=== PATIENT | male | born 1955 | race Caucasian/White ===

== ENCOUNTER 2019-01-13 11:16 | Inpatient (IN) ==
[2019-01-13] MEDS ORDERED: NS 1,000 ML IV ONE ×2 (11:32→13:49)
[2019-01-13] MEDS ORDERED: TYLENOL PO ONE (11:32)
[2019-01-13] MEDS ORDERED: CARDIZEM IV ONE (11:37)
--- NOTE | 2019-01-13 11:58 | PROVIDER DOCUMENTATION ---
This chart was entered by Adri Anderson Scribe, acting as scribe for Gregory Roa CRNP. HPI-General Adult - General Chief Complaint: SEPSIS ALERT - D Stated Complaint: weakness Time Seen by Provider: 01/13/19 11:30 Source: patient Allergies/Adverse Reactions: Patient Allergies Allergy/AdvReac Type Severity Reaction Status Date / Time celecoxib [From Celebrex] Allergy ABDOMINAL Verified 11/10/13 09:25 PAIN cephalexin monohydrate * Allergy SHORTNESS Verified 11/10/13 09:25 [From Keflex] OF BREATH Penicillins Allergy Unknown Verified 11/10/13 09:25 Home Medications: Home Medication List Medication Instructions Recorded Confirmed Last Taken Type Bumetanide [Bumex] 2 mg PO BID 11/10/13 11/11/13 11/10/13 20:00 History Carvedilol [Coreg] 25 mg PO BID 11/10/13 11/11/13 11/11/13 05:00 History Digoxin [Lanoxin] 125 microgm PO DAILY 11/10/13 11/11/13 11/11/13 05:00 History Diltiazem HCl [Tiazac] 240 mg PO BID 11/10/13 11/11/13 11/11/13 05:00 History Esomeprazole [Nexium] 40 mg PO DAILY 11/10/13 11/11/13 11/10/13 08:00 History Glipizide 5 mg PO DAILY 11/10/13 11/11/13 11/10/13 08:00 History Hydralazine HCl 100 mg PO TID 11/10/13 11/11/13 11/11/13 05:00 History Hydrocodone/Acetaminophen [Lortab 1 - 2 each PO BID PRN PRN 11/10/13 11/11/13 11/10/13 08:00 History 5-325 mg Tablet] Irbesartan [Avapro] 150 mg PO DAILY 11/10/13 11/11/13 11/10/13 08:00 History Isosorbide Mononitrate E.r. [Imdur] 30 mg PO BID 11/10/13 11/11/13 11/10/13 20:00 History Metaxalone [Skelaxin] 400 - 800 mg PO TID PRN 11/10/13 11/11/13 11/10/13 20:00 History Metformin E.r. [Glucophage Xr] 1,000 mg PO BID CC 11/10/13 11/11/13 11/10/13 20:00 History Perindopril Erbumine [Aceon] 1 mg PO BID 11/10/13 11/11/13 11/10/13 20:00 History ROSUVAstatin [Crestor] 10 mg PO QHS 11/10/13 11/11/13 11/10/13 20:00 History Warfarin [Coumadin] 4 mg PO QHS 11/10/13 11/11/13 11/07/13 History - History of Present Illness -Gen Adult Nature of Presenting Problems: 63 y/o male presents to ED with fever and weakness onset 2 days ago. Pt also complains of R leg redness, warmth, and pain. Pt is alert and oriented. Location of Pain/Injury: reports: lower extremity Pain Radiation: reports: no radiation Quality of Pain: reports: aching Severity: reports: moderate Onset/Duration: reports: 2 days ago Timing: reports: still present, getting worse Context/Activities at Onset: reports: none Modifying Factors: worse with: palpation Associated Symptoms: reports: fever/chills, weakness, other (R leg redness, warmth, and pain) Similar Symptoms Previously?: No Recently seen or treated by another doctor?: No Review of Systems - Adult - REVIEW OF SYSTEMS - ADULT Constitutional: reports: fever. denies: chills Eyes: reports: no symptoms reported Ears, Nose, Mouth & Throat: reports: no symptoms reported Cardiovascular: denies: chest pain, palpitations Respiratory: denies: cough, shortness of breath Gastrointestinal: denies: abdominal pain, diarrhea, nausea, vomiting Genitourinary: reports: no symptoms reported Musculoskeletal: denies: back pain, joint pain Integumentary: reports: other (R leg redness, warmth, and pain). denies: hives Neurological: reports: other (weakness). denies: dizziness/vertigo, seizure Psychiatric: reports: no symptoms reported Endocrine: reports: no symptoms reported Hematologic/Lymphatic: reports: no symptoms reported Allergic/Immunologic: reports: no symptoms reported All Other Systems: Reviewed and Negative Past History - Adult - PAST MEDICAL HISTORY-ADULT Review of Records: reports: Old Records Reviewed, Nursing Assessment Review, Medications Reviewed Major Childhood Illnesses: reports: denies history Cardiovascular: reports: HTN Respiratory: reports: sleep apnea Genitourinary: reports: kidney stones - PRIOR SURGERIES/PROCEDURES Surgical/Procedure History: reports: none - IMMUNIZATION STATUS Childhood Immunizations: See Nurse Assessment Flu Vaccine: See Nurse Assessment - FAMILY HISTORY Family History: reviewed, not pertinent - SOCIAL HISTORY Smoking: cigarettes, greater than 1 pack/day Provider spent 3-5 mins advising pt. on dangers of tobacco.: Discussed manners to quit use, and f/u contacts for add'l counseling. Substance Use: none/never Alcohol Use Frequency: never Living Situation: family Physical Exam-General - PHYSICAL EXAM-ADULT Initial Vital Signs Reviewed: Yes (temp 100.9) - CONSTITUTIONAL General Appearance: alert, no apparent distress - EYES Eyes: PERRL/EOMI, pink conjunctivae - HEAD, EARS, NOSE, MOUTH & THROAT HENMT: normocephalic/atraumatic, moist mucous membranes, normal ENT inspection - NECK Neck: non-tender, full range of motion - RESPIRATORY Respiratory: chest non-tender, rhonchi (bilateral but mild), increased rate - CARDIOVASCULAR Cardiovascular: tachycardia, irregularly irregular - GASTROINTESTINAL (ABDOMEN) Abdominal Exam: normal bowel sounds, non tender, soft - LYMPHATIC Lymphatic: no adenopathy. negative: axilla node tender, cervical node tenderness - MUSCULOSKELETAL Back Exam: normal inspection, no CVA tenderness, no vertebral tenderness Extremity: normal range of motion, erythema (Right inner thigh), inflammation (Right inner thigh) Peripheral Pulses: radial (R): 2+, radial (L): 2+ - SKIN Integumentary: normal color, warm/dry, erythema (R medial leg), tenderness (R medial leg), warm (R medial leg), other (bilateral venous stasis ulcers; R medial leg cellulitis with associated streaking; R leg warm to touch and mildly indurated) - NEUROLOGIC Neurologic: grossly normal - PSYCHIATRIC Psych/Mental Status: normal mood/affect, normal thought content, normal thought process, oriented x 3 Progress - PLAN OF CARE/RESULTS Progress/Plan/Lab Results: Vital Signs - 8 hr 01/13/19 11:18 Temperature 100.9 F H Pulse Rate 107 H Respiratory Rate 20 Blood Pressure 131/89 O2 Sat by Pulse Oximetry 96 Laboratory Results - last 24 hr 01/13/19 11:31 POC Glucose 140 H Orders Category Date Time Status Cardiac Monitoring DIRECTED Care 01/13/19 11:31 Active IV Insertion ORDERED Care 01/13/19 11:31 Completed Notify MD of + Sepsis Screen NOW Care 01/13/19 11:31 Active Notify Physician As Ordered Care 01/13/19 11:31 Active CHEST-1 VIEW [RAD] Stat Exams 01/13/19 11:31 Ordered ABG [RESP] Routine Lab 01/13/19 11:31 Ordered BLOOD CULTURE [BLDCUL] Stat Lab 01/13/19 11:42 Ordered CBC WITH DIFF [HEME] Stat Lab 01/13/19 11:42 Ordered CK PROFILE [SP CHEM] Stat Lab 01/13/19 11:42 Ordered COMPREHENSIVE METABOLIC PANEL [CHEM] Stat Lab 01/13/19 11:42 Ordered LACTATE, PLASMA [CHEM] Q3H Lab 01/13/19 11:45 Uncollected LACTATE, PLASMA [CHEM] Q3H Lab 01/13/19 14:45 Uncollected LACTATE, PLASMA [CHEM] Q3H Lab 01/13/19 17:45 Uncollected MAGNESIUM [CHEM] Stat Lab 01/13/19 11:42 Ordered PROTIME WITH INR [COAG] Stat Lab 01/13/19 11:42 Ordered PTT [COAG] Stat Lab 01/13/19 11:42 Ordered TROPONIN T Stat Lab 01/13/19 11:42 Ordered URINALYSIS W/POSS RFLX CULT [URINALYSIS] Stat Lab 01/13/19 11:31 Uncollected 0.9% Sodium Chloride Inj [Ns] 1,000 ml Med 01/13/19 11:32 Active IV 999 mls/hr Acetaminophen [Tylenol] Med 01/13/19 11:32 Discontinued 1,000 mg PO NOW ONE Diltiazem [Cardizem] Med 01/13/19 11:37 Discontinued 10 mg IV NOW ONE Oxygen Device Stat Oth 01/13/19 11:31 Active Laboratory Tests 01/13/19 01/13/19 01/13/19 04:11 04:11 04:11 WBC RBC Hgb Hct MCV MCH MCHC RDW Std Deviation Plt Count MPV Immature Gran % (Auto) Neut % (Auto) Lymph % (Auto) [place] % (Auto) Eos % (Auto) Baso % (Auto) Immature Gran # (Auto) Neut # (Auto) Lymph # (Auto) [place] # (Auto) Eos # (Auto) Baso # (Auto) PT 24.4 H INR 2.13 PTT (Actin FS) 41.3 Specimen Type Sample Site pH pCO2 pO2 HCO3 Base Excess Oxyhemoglobin ABG O2 Sat (Calculated) ABG O2 Saturation ABG Carboxyhemoglobin ABG Methemoglobin [place] Test A-a O2 Difference Total Hemoglobin Lactate FiO2 % Sodium 136 Potassium 3.8 Chloride 97 L Carbon Dioxide 24 L Anion Gap 15 BUN 18 Creatinine 1.1 Estimated GFR/1.73 m2 > 60 BUN/Creatinine Ratio 16 Glucose 141 H POC Glucose Calculated Osmolality 276 Calcium 8.6 L Magnesium 1.4 L Total Bilirubin 1.07 H AST 38 H ALT 29 Alkaline Phosphatase 44 Creatine Kinase 376 H Troponin T < 0.010 Total Protein 5.7 L Albumin 3.4 L Globulin 2.3 Albumin/Globulin Ratio 1.5 Plasma Lactate 01/13/19 01/13/19 01/13/19 11:31 11:34 11:34 WBC 16.64 H RBC 4.38 L Hgb 13.7 L Hct 40.0 L MCV 91.3 MCH 31.3 H MCHC 34.3 RDW Std Deviation 15.2 H Plt Count 180 MPV 10.1 Immature Gran % (Auto) 0.9 H Neut % (Auto) 89.0 H Lymph % (Auto) 4.4 L [place] % (Auto) 5.5 Eos % (Auto) 0.0 Baso % (Auto) 0.2 Immature Gran # (Auto) 0.15 H Neut # (Auto) 14.80 H Lymph # (Auto) 0.74 L [place] # (Auto) 0.92 H Eos # (Auto) 0.00 Baso # (Auto) 0.03 PT INR PTT (Actin FS) Specimen Type Sample Site pH pCO2 pO2 HCO3 Base Excess Oxyhemoglobin ABG O2 Sat (Calculated) ABG O2 Saturation ABG Carboxyhemoglobin ABG Methemoglobin [place] Test A-a O2 Difference Total Hemoglobin Lactate FiO2 % Sodium Potassium Chloride Carbon Dioxide Anion Gap BUN Creatinine Estimated GFR/1.73 m2 BUN/Creatinine Ratio Glucose POC Glucose 140 H Calculated Osmolality Calcium Magnesium Total Bilirubin AST ALT Alkaline Phosphatase Creatine Kinase Troponin T Total Protein Albumin Globulin Albumin/Globulin Ratio Plasma Lactate 4.5 H* 01/13/19 12:05 WBC RBC Hgb Hct MCV MCH MCHC RDW Std Deviation Plt Count MPV Immature Gran % (Auto) Neut % (Auto) Lymph % (Auto) [place] % (Auto) Eos % (Auto) Baso % (Auto) Immature Gran # (Auto) Neut # (Auto) Lymph # (Auto) [place] # (Auto) Eos # (Auto) Baso # (Auto) PT INR PTT (Actin FS) Specimen Type ARTERIAL Sample Site R RADIAL pH 7.51 H pCO2 26 L pO2 70 HCO3 24.1 Base Excess -0.9 Oxyhemoglobin 92.3 L ABG O2 Sat (Calculated) 17.3 ABG O2 Saturation 94.8 L ABG Carboxyhemoglobin 2.10 ABG Methemoglobin 0.4 [place] Test YES A-a O2 Difference 47.0 Total Hemoglobin 13.3 Lactate 3.50 H FiO2 % 21.0 Sodium Potassium Chloride Carbon Dioxide Anion Gap BUN Creatinine Estimated GFR/1.73 m2 BUN/Creatinine Ratio Glucose POC Glucose Calculated Osmolality Calcium Magnesium Total Bilirubin AST ALT Alkaline Phosphatase Creatine Kinase Troponin T Total Protein Albumin Globulin Albumin/Globulin Ratio Plasma Lactate Discussed results and plan of care with patient. Patient agrees with plan and verbalizes understanding. Result Diagrams: 01/13/19 11:34 01/13/19 04:11 - EKG 1 Time of EKG reading by physician:: 11:37 EKG Read and Signed by:: Randy Ponce EKG Interpretation (*Must complete 3 of following elements*): Abnormal Rate: 105 Rhythm: A fib with RVR [place]: left QRS: other (septal infarct) NH Interval: normal ST Wave: normal - XRAY 1 XRAY Study: Chest Impression: See EMR Report XRAY Interpretation: pneumonia ([place]) - CONSULTS/PCP/HOSPITALIST Notification #1 *Consult/PCP/Hospitalist*: Elicia and Dr. Morales Time Discussed: 12:43 Reason/Comments: Admission Consult Disposition: Will see in ED, Admit Departure - Departure Date of Disposition Decision: 01/13/19 Time of Disposition Decision: 12:21 DIAGNOSIS: Hyperglycemia, Hypomagnesemia, Liver enzyme elevation, Tobacco use disorder Cellulitis Qualifiers: Site of cellulitis: extremity Site of cellulitis of extremity: lower extremity Laterality: left Qualified Code(s): L03.116 - Cellulitis of left lower limb Anemia Qualifiers: Anemia type: unspecified type Qualified Code(s): D64.9 - Anemia, unspecified Pneumonia Qualifiers: Pneumonia type: due to unspecified organism Laterality: right Lung location: middle lobe of lung Qualified Code(s): J18.1 - Lobar pneumonia, unspecified organism Disposition: ADMITTED INPATIENT 09 Certified Medical Emergency: Emergent Condition: Stable Referrals and Follow-Ups: Frank Rosenberg MD [Primary Care Provider] - Discharge Education: Steps to Quit Smoking, [id number] - Critical Care Note This patient required my direct & personal management of CC.: Yes Total Time (mins): 45 Critical Care Statement: This patient required my direct personal management to treat or rule out processes, the absence of which, could potentiallly result in sudden, clinically significant life or limb threatening deterioration. Attestation - Physician/ KATHARINA Attestation Patient care was provided by Advanced Practice Provider:: Yes Advanced Practice Provider:: Gregory Roa Advanced Practice Provider documentation review:: The Mid-level provider documentation, treatment plan and medical decision making was reviewed by the physician who agrees with all treatment and medical decision making by the MLP. The physician spent face to face time with patient:: No Advanced Practice Provider documentation review:: Supervising physician onsite and consulted in the evaluation and care of this patient. The physician did not have a face to face encounter with the patient. This chart was documented by the indicated scribe, (Adri Anderson Scribe) and accurately reflects the services I performed and decisions made by me, Gregory Roa CRNP, as attested by the provider's signature.
[2019-01-13 12:13] LABS: INR 2.13; PROTIME 24.4 Seconds (11.0-16.0)
[2019-01-13 12:13] LABS: ALLEN TEST YES; BE -0.9 mmoll (-3.0-3.0); BLOOD TYPE ARTERIAL; HCO3-(ACT) 24.1 mmoll (20.0-26.0); METHB 0.4 % (0.0-1.5); O2(CT) 17.3 mL/dL (15.0-23.0); O2HB 92.3 % (95.0-99.0); PCO2(98.6) 26 mmHg (35-45); PO2(98.6) 70 mmHg (60-100); SAMPLE BLOOD; SAO2 94.8 % (95.0-100.0); THB 13.3 g/dL (11.5-17.4); pH(98.6) 7.51 (7.35-7.45)
[2019-01-13 12:13] LABS: BASO# 0.03 X1000 (0.0-0.2); BASO% 0.2 % (0.0-0.8); HEMOGLOBIN 13.7 g/dL (14.0-18.0); IMM GRAN# 0.15 X1000 (0.0-0.04); IMM GRAN% 0.9 % (0.0-0.5); LYMPH# 0.74 X1000 (1.2-3.4); LYMPH% 4.4 % (20.5-51.1); MCH 31.3 PG (27-31); MCHC 34.3 g/dL (33-37); MCV 91.3 FL (81-99); MONO# 0.92 X1000 (0.11-0.59); MONO% 5.5 % (1.7-9.3); MPV 10.1 FL (7.4-10.4); PLT 180 X1000 (130-400); RBC 4.38 XMIL (4.7-6.1); RDW 15.2 % (11.5-14.5); WBC 16.64 X1000 (4.8-10.8)
[2019-01-13 12:14] LABS: PTT 41.3 Seconds (22.3-41.8)
[2019-01-13 12:19] LABS: AGAP 15; ALB/GLOB RATIO 1.5; ALBUMIN 3.4 g/dL (3.5-5.0); ALKALINE PHOSPHATASE 44 U/L (32-122); BUN 18 mg/dL (8-22); CALCIUM 8.6 mg/dL (8.8-10.2); CHLORIDE 97 mmol/L (98-107); COSMO 276; CREATININE 1.1 mg/dL (0.7-1.2); ESTIMATED GFR > 60; GLUCOSE 141 mg/dL (70-104); GOT 38 U/L (10-34); GPT 29 U/L (10-44); MAGNESIUM 1.4 mg/dL (1.5-2.7); POTASSIUM 3.8 mmol/L (3.5-5.1); SODIUM 136 mmol/L (136-145); TCO2 24 mmol/L (25-35); TOTAL BILIRUBIN 1.07 mg/dL (0.20-1.00); TOTAL PROTEIN 5.7 g/dL (6.3-8.3)
[2019-01-13] MEDS ORDERED: VANCOMYCIN 1 GM/NS 1 GM/250 ML IVPB IV ONE (12:23)
[2019-01-13 12:24] LABS: CK PROFILE 376 U/L (24-204)
[2019-01-13 12:50] LABS: CK INDEX 1.1 (0.0-2.5); CK-MB 4.09 ng/mL (0.0-5.0)
--- NOTE | 2019-01-13 13:05 | Diag Imaging Result Doc PS360 ---
EXAM: CHEST-1 VIEW 01/13/2019 HISTORY: fever TECHNIQUE: AP portable upright at 1145 COMMENT: There is cardiomegaly. There is a granuloma in the left costophrenic angle. There are no previous studies. IMPRESSION: Cardiomegaly. Electronically signed by Eber Ivy 01/13/2019 1:03 PM
[2019-01-13 13:10] LABS: URINE SOURCE CATH
[2019-01-13 13:24] LABS: BILIRUBIN URINE NEGATIVE (NEGATIVE); BLOOD URINE MODERATE (NEGATIVE); COLOR YELLOW; GLUCOSE URINE 150 mg/dL (NEGATIVE); KETONE URINE NEGATIVE (NEGATIVE); LEUKOCYTES URINE NEGATIVE (NEGATIVE); NITRITE URINE NEGATIVE (NEGATIVE); PH URINE 6.5; PROTEIN URINE 600 mg/dL (NEGATIVE); SP GRAVITY URINE 1.024; TURBIDITY URINE HAZY (CLEAR); UROBILINOGEN URINE 4 mg/dL (NORMAL)
[2019-01-13 13:25] LABS: UR EPITHELIAL CELLS >10 /HPF (<10); URINE BACTERIA NEGATIVE /HPF; URINE RBC TNTC /HPF (<10); URINE WBC <10 /HPF (<10)
[2019-01-13] MEDS ORDERED: MAGNESIUM SULFATE 2 GM/S.W.I. 2 GM/50 ML IVPB IV ONE (13:33)
[2019-01-13] MEDS ORDERED: ZOFRAN IV PRN (13:40)
--- NOTE | 2019-01-13 13:52 | EKG Report ---
Test Performed on : 01/13/2019 11:33:09 AM Test Reason : ED. NO EKG ORDER FOR MUSE Blood Pressure : / mmHG Vent. Rate : 105 BPM Atrial Rate : 090 BPM P-R Int : 000 ms QRS Dur : 092 ms QT Int : 336 ms P-R-T Axes : 000 -33 053 degrees QTc Int : 444 ms Atrial fibrillation. with rapid ventricular response. Left axis deviation Septal infarct (cited on or before 05-JAN-2010) Abnormal ECG When compared with ECG of 05-JAN-2010 10:13, Vent. rate has increased BY 39 BPM QRS axis shifted left Questionable change in initial forces of Anteroseptal leads Nonspecific T wave abnormality no longer evident in Inferior leads T wave inversion more evident in Lateral leads Unconfirmed Result
[2019-01-13 15:49] LABS: INR 2.21
[2019-01-13] MEDS: AZACTAM 2 GM in NS 100 ML IV SCH ×2 (15:51→21:57)
[2019-01-13] MEDS: NS 1,000 ML IV SCH (15:52)
[2019-01-13] MEDS ORDERED: LANOXIN PO ONE ×2 (16:31→20:45)
--- NOTE | 2019-01-13 18:43 | HISTORY AND PHYSICAL ---
CHIEF COMPLAINT: Right lower extremity redness, warmth and pain. HISTORY OF PRESENT ILLNESS: This is a 63-year-old gentleman who presents to the emergency room complaining of generalized weakness with fevers and chills as well as redness to his right leg. He states that the leg has been red for about a week, but that over the last 2-3 days it has become warm and tender to palpation as well as with movement. He describes the pain as an aching- type pain. He is noted to have erythema as well as warmth to his right inner thigh. He was noted to have a white count of 16. He did have a temperature of 100.9 degrees on arrival to the ER. He was given IV hydration as well as IV fluids while in the emergency room. He did have a heart rate of 102 to 115 in the emergency room, with EKG revealing atrial fibrillation with RVR at a rate of 105. He carries a history of chronic atrial fibrillation. He is on medication. PAST MEDICAL HISTORY: 1. Chronic atrial fibrillation. 2. Hypertension. 3. Diabetes mellitus. 4. Sleep apnea. SOCIAL HISTORY: He smokes about a pack a day. He denies alcohol or illicit drug use. ALLERGIES: Keflex, which causes shortness of breath; penicillin, shortness of breath; Celebrex, abdominal pain. HOME MEDICATIONS: A list will be obtained by the nursing staff, and once verified we will review and restart as appropriate. REVIEW OF SYSTEMS: Discussed with the patient, with pertinent positives stated in the HPI. He denies any syncope or dizziness, any chest pain or palpitations, cough, shortness of breath, fever, chills, any night sweats, recent weight loss or weight gain, any nausea, vomiting, diarrhea, constipation, black or bloody vomitus or stools, any hematuria, dysuria, frequency or urgency. PHYSICAL EXAMINATION: GENERAL: This is a 63-year-old gentleman who is sitting up on the bedside in no distress. VITAL SIGNS: Blood pressure is 140/64 with a heart rate ranging from 101 to 106, respirations are 20, temperature is 99.2 degrees oral with O2 saturations 95% to 98%. EYES: Pupils equal, round and react to light. EOMs are intact. Sclerae anicteric. HEENT: Head is normocephalic, atraumatic. Mucous membranes are moist. NECK: Supple. Trachea midline. CARDIOVASCULAR: Irregularly irregular rate and rhythm. He is tachycardic. S1, S2 appreciated. He has no murmur. Calves are nontender bilateral, with peripheral pulses palpable. PULMONARY: Breath sounds with some rhonchi scattered throughout. Chest rises and falls symmetric with respiration. GASTROINTESTINAL: Abdomen is soft, nontender, nondistended with bowel sounds in all 4 quadrants. GENITOURINARY: He has no CVA nor suprapubic tenderness. SKIN: Warm and dry. He does have an area to his right inner thigh that is red, warm. It tender to palpation. He does have signs of bilateral venous stasis to bilateral lower extremities. He does have some induration to this right thigh. LABORATORY DATA: WBC is 16.6, with hemoglobin 13.7, hematocrit 40 and platelets 180,000. INR is 2.21. Sodium has 136, potassium 3.8, BUN 18, creatinine 1 with glucose of 140. Magnesium is 1.4. Lactate is 4.5. Urinalysis was a catheterized specimen, reveals moderate blood with less than 10 microscopic white blood cells, mug-[id number]-count red blood cells and greater than 10 epithelial cells. This could very well be consistent with contamination. Microbiology blood cultures x2 are pending. Urine culture is pending. ASSESSMENT: 1. Cellulitis, right lower extremity. 2. Fever. 3. Hyperglycemia. 4. Hypomagnesemia. 5. Elevated liver function tests. 6. Sepsis secondary to cellulitis. 7. Leukocytosis. 8. Chronic anticoagulation secondary to atrial fibrillation. 9. Atrial fibrillation with rapid ventricular response. PLAN: The patient will be admitted to the hospital. He will be placed on telemetry. We will identify his home medications and continue these as appropriate. consult Wound Care. order for the gatch at the foot of his bed to be elevated at all times. continue vancomycin, add aztreonam for antibiotic coverage. Any further antibiotics will be culture-driven. pattern blood glucose with sliding scale insulin. Replete electrolytes and trend labs. DVT prophylaxis w, SCDs gentle hydration, repeat a CBC, PT, INR, BMP and magnesium in the morning. Plan discussed with Dr Magdaleno. Further treatments pending hospital course. Dictated by URSZULA Martinez for Rowan Magdaleno MD cc: Cathy URSZULA Bingham MD [facility]
[2019-01-13] MEDS: TYLENOL PO PRN (20:43)
[2019-01-13] MEDS: COREG PO SCH (21:56)
[2019-01-13] MEDS: HUMULIN R SUBQ SCH (21:56)
[2019-01-13] MEDS: CARDIZEM CD PO SCH (21:56)
[2019-01-14] MEDS: NS 1,000 ML IV SCH (05:05)
[2019-01-14] MEDS: HUMULIN R SUBQ SCH ×4 (06:40→21:44)
[2019-01-14] MEDS: PRILOSEC PO SCH (06:45)
[2019-01-14] MEDS: AZACTAM 2 GM in NS 100 ML IV SCH ×3 (06:45→21:37)
--- NOTE | 2019-01-14 07:31 | EKG Report ---
Test Performed on : 01/14/2019 07:01:54 AM Test Reason : afib Blood Pressure : / mmHG Vent. Rate : 088 BPM Atrial Rate : 127 BPM P-R Int : 000 ms QRS Dur : 088 ms QT Int : 350 ms P-R-T Axes : 000 -11 091 degrees QTc Int : 423 ms Atrial fibrillation. with premature ventricular or aberrantly conducted complexes. Anteroseptal infarct (cited on or before 05-JAN-2010) Abnormal ECG When compared with ECG of 13-JAN-2019 11:33, (Unconfirmed) No significant change was found Confirmed by Ky Sow MD ([id number]) on 01/17/2019 9:31:12 PM
[2019-01-14 08:29] LABS: INR 1.73; PROTIME 20.6 Seconds (11.0-16.0)
[2019-01-14 08:30] LABS: BASO% 0.3 % (0.0-0.8); EOS% 0.2 % (0.0-10.0); HEMATOCRIT 38.9 % (42.0-52.0); HEMOGLOBIN 13.2 g/dL (14.0-18.0); IMM GRAN% 0.3 % (0.0-0.5); LYMPH% 5.7 % (20.5-51.1); MCH 31.2 PG (27-31); MCHC 33.9 g/dL (33-37); MONO% 7.3 % (1.7-9.3); MPV 10.1 FL (7.4-10.4); NEUT# 9.62 X1000 (1.4-6.5); NEUT% 86.2 % (42.2-75.2); PLT 136 X1000 (130-400); RBC 4.23 XMIL (4.7-6.1); RDW 15.1 % (11.5-14.5); WBC 11.15 X1000 (4.8-10.8)
[2019-01-14 08:31] LABS: BASO# 0.03 X1000 (0.0-0.2); EOS# 0.02 X1000 (0.0-0.7); IMM GRAN# 0.03 X1000 (0.0-0.04); LYMPH# 0.64 X1000 (1.2-3.4); MONO# 0.81 X1000 (0.11-0.59)
[2019-01-14] MEDS: LANOXIN PO SCH (08:36)
[2019-01-14] MEDS: GLUCOTROL XL PO SCH (08:37)
[2019-01-14] MEDS: COZAAR PO SCH (08:37)
[2019-01-14] MEDS: BUMEX PO SCH ×2 (08:38→21:37)
[2019-01-14] MEDS: COREG PO SCH ×2 (08:38→21:38)
[2019-01-14] MEDS: ZANAFLEX PO SCH ×2 (08:38→21:38)
[2019-01-14] MEDS: IMDUR PO SCH ×2 (08:39→21:38)
[2019-01-14] MEDS: CARDIZEM CD PO SCH ×2 (08:39→21:38)
[2019-01-14] MEDS: JANUVIA PO SCH (08:39)
[2019-01-14] MEDS: SINGULAIR PO SCH (08:39)
[2019-01-14 08:41] LABS: AGAP 12; BUN 19 mg/dL (8-22); CALCIUM 8.1 mg/dL (8.8-10.2); CHLORIDE 102 mmol/L (98-107); COSMO 271; CREATININE 0.9 mg/dL (0.7-1.2); ESTIMATED GFR > 60; GLUCOSE 79 mg/dL (70-104); POTASSIUM 3.3 mmol/L (3.5-5.1); SODIUM 135 mmol/L (136-145); TCO2 21 mmol/L (25-35)
[2019-01-14] MEDS ORDERED: MAGNESIUM SULFATE 2 GM/S.W.I. 2 GM/50 ML IVPB IV ONE (08:50)
[2019-01-14] MEDS ORDERED: KLOR-CON PO ONE (08:50)
[2019-01-14] MEDS ORDERED: VANCOMYCIN IV PER PHARMACY MISC SCH (16:00)
--- NOTE | 2019-01-14 16:59 | PROGRESS NOTE ---
DATE: 01/14/2019 SUBJECTIVE: The patient is resting comfortably in bed. He still has erythema mainly in the right upper thigh. OBJECTIVE: Vital Signs: Temperature 98.6 degrees, blood pressure 131/80, heart rate 92, respirations 18, O2 saturations 100% on 3 L nasal cannula. General: This is a morbidly obese, chronically ill-appearing male, lying in bed in no acute distress. Heart: S1, S2 normal. Regular rate and rhythm. Lungs: Clear to auscultation bilaterally. Abdomen: Positive bowel sounds. Soft, obese, nontender, nondistended. Extremities: The patient has erythema involving the right upper thigh. There are chronic venous stasis changes in the lower extremities plus lymphedema. Neurologic: The patient is alert and oriented x4. LABS: White blood cell count 11, hemoglobin 13, hematocrit 38, platelets 136. INR 1.7. Sodium 135, potassium 3.3, chloride 102, CO2 21, BUN 19, creatinine 0.9, glucose 177, magnesium 1.7, calcium 8.1. ASSESSMENT AND PLAN: 1. Right lower extremity cellulitis with chronic venous stasis. We will continue with broad- spectrum antibiotics. 2. Bacteremia. On bottle of the blood cultures is growing gram positive cocci. Will start Vanco and await the final culture results. 3. Diabetes mellitus type 2. Continue on Januvia, Glucotrol and sliding scale insulin. 4. Atrial fibrillation. The patient is rate controlled. Continue on Coreg, Cardizem CD, digoxin and warfarin. Will monitor the INR. 5. Hypertension, controlled. Continue on the current antihypertensive regimen. 6. Leukocytosis. Improved. 7. Morbid obesity. The patient has been counseled about weight loss and proper diet. 8. Hypokalemia. Will replace the patient's potassium. 9. DVT prophylaxis. The patient is on warfarin. cc: Rowan Magdaleno MD [facility]
[2019-01-14] MEDS ORDERED: VANCOMYCIN 2,200 MG in NS 500 ML IV ONE (17:00)
[2019-01-14] MEDS ORDERED: NS NEB INH SCH (19:00)
--- NOTE | 2019-01-14 20:12 | Diag Imaging Result Doc PS360 ---
EXAM: CHEST-PORTABLE - 01/14/2019 HISTORY: dyspnea TECHNIQUE: Portable chest COMPARISON: 01/13/2019 FINDINGS: There is stable cardiomegaly. There has been development of mild pulmonary edema. There is no pleural effusion or pneumothorax identified. IMPRESSION: Development of mild pulmonary edema. Electronically signed by Len Anton 01/14/2019 8:09 PM
--- NOTE | 2019-01-14 21:17 | EKG Report ---
Test Performed on : 01/14/2019 8:47:31 PM Test Reason : afib Blood Pressure : / mmHG Vent. Rate : 120 BPM Atrial Rate : 120 BPM P-R Int : 000 ms QRS Dur : 084 ms QT Int : 266 ms P-R-T Axes : 000 009 132 degrees QTc Int : 375 ms Atrial fibrillation. with rapid ventricular response. Anteroseptal infarct (cited on or before 05-JAN-2010) T wave abnormality, consider lateral ischemia Abnormal ECG When compared with ECG of 14-JAN-2019 07:01, (Unconfirmed) No significant change was found Confirmed by Juanjose OQUENDO MJeff Justin ([id number]) on 01/17/2019 9:32:25 PM
[2019-01-14 21:21] LABS: CK INDEX 1.3 (0.0-2.5); CK-MB 6.39 ng/mL (0.0-5.0)
[2019-01-14] MEDS: CRESTOR PO SCH (21:37)
[2019-01-14] MEDS: COUMADIN PO SCH (21:38)
[2019-01-14] MEDS: XOPENEX NEB INH SCH (23:59)
[2019-01-15] MEDS: XOPENEX NEB INH SCH ×5 (04:20→22:05)
[2019-01-15] MEDS: PRILOSEC PO SCH (06:25)
[2019-01-15] MEDS: HUMULIN R SUBQ SCH ×2 (06:26→12:25)
[2019-01-15] MEDS: AZACTAM 2 GM in NS 100 ML IV SCH ×3 (06:26→21:06)
[2019-01-15 08:11] LABS: BASO# 0.02 X1000 (0.0-0.2); BASO% 0.2 % (0.0-0.8); EOS# 0.02 X1000 (0.0-0.7); EOS% 0.2 % (0.0-10.0); HEMATOCRIT 35.8 % (42.0-52.0); IMM GRAN# 0.02 X1000 (0.0-0.04); IMM GRAN% 0.2 % (0.0-0.5); LYMPH# 1.01 X1000 (1.2-3.4); LYMPH% 11.4 % (20.5-51.1); MCH 30.4 PG (27-31); MCHC 33.5 g/dL (33-37); MCV 90.6 FL (81-99); MONO# 0.84 X1000 (0.11-0.59); MONO% 9.5 % (1.7-9.3); MPV 10.5 FL (7.4-10.4); NEUT# 6.94 X1000 (1.4-6.5); NEUT% 78.5 % (42.2-75.2); PLT 145 X1000 (130-400); RBC 3.95 XMIL (4.7-6.1); RDW 14.5 % (11.5-14.5); WBC 8.85 X1000 (4.8-10.8)
[2019-01-15 08:14] LABS: INR 1.66; PROTIME 19.9 Seconds (11.0-16.0)
[2019-01-15 08:37] LABS: MAGNESIUM 1.7 mg/dL (1.5-2.7); PHOSPHORUS 2.5 mg/dL (2.7-4.5)
[2019-01-15 08:42] LABS: AGAP 13; BUN 21 mg/dL (8-22); CALCIUM 8.2 mg/dL (8.8-10.2); CHLORIDE 100 mmol/L (98-107); COSMO 276; ESTIMATED GFR > 60; GLUCOSE 93 mg/dL (70-104); POTASSIUM 3.1 mmol/L (3.5-5.1); SODIUM 137 mmol/L (136-145); TCO2 24 mmol/L (25-35)
[2019-01-15] MEDS: GLUCOTROL XL PO SCH (09:27)
[2019-01-15] MEDS: COZAAR PO SCH (09:27)
[2019-01-15] MEDS: JANUVIA PO SCH (09:27)
[2019-01-15] MEDS: BUMEX PO SCH ×2 (09:27→20:57)
[2019-01-15] MEDS: COREG PO SCH ×2 (09:27→20:57)
[2019-01-15] MEDS: SINGULAIR PO SCH (09:28)
[2019-01-15] MEDS: CARDIZEM CD PO SCH ×2 (09:28→20:57)
[2019-01-15] MEDS: ZANAFLEX PO SCH ×2 (09:28→20:57)
[2019-01-15] MEDS: IMDUR PO SCH ×2 (09:28→20:57)
[2019-01-15] MEDS: LANOXIN PO SCH (09:28)
[2019-01-15] MEDS ORDERED: KLOR-CON PO ONE (13:26)
--- NOTE | 2019-01-15 14:17 | PROGRESS NOTE ---
DATE: 01/15/2019 SUBJECTIVE: The patient reports that right thigh is less swollen and painful. OBJECTIVE: Vital Signs: Temperature 98.5 degrees, heart rate 82, respiratory rate 19, blood pressure 151/76, O2 saturation 100% on 4 L nasal cannula. General examination: This is a chronically ill-appearing, 63-year-old male, lying in bed in no acute distress. Cardiovascular exam: S1, S2 heard. No murmurs, gallops, or rubs. Regular rate and rhythm. Respiratory exam: Clear bilaterally to auscultation. No work of breathing or using accessory muscles. Abdomen: Soft. Obese. A little distended, but nontender to palpation. Bowel sounds present. No organomegaly. Extremity: The patient has erythema involving the right upper thigh. There is chronic venous stasis changes in both lower extremities. Lymphedema ichthyosis. Neurological exam: Patient is alert and oriented x3. Moves 4 extremities. LABORATORY DATA: White cell count 8.85, hemoglobin 12.0, hematocrit 35.8, platelets 145. INR is 1.66 with BMP that reveals potassium 3.1, glucose 121 and hemoglobin A1c 7.0. Phosphorus 2.5. ASSESSMENT AND PLAN: 1. Right lower extremity cellulitis with chronic venous stasis. I think this cellulitis will take definitely some time to resolve. At this point, patient is on vancomycin that was started for possible gram-positive cocci, but there seems to be contaminant. The patient is also on Azactam for gram-negative coverage. Because I am not quite sure for how long will need antibiotics, definitely will need to have a followup as an outpatient. I prefer to get Infectious Disease consultation and see what they think. 2. Diabetes mellitus type 2. We will continue here with sliding scale insulin low doses, Accu- Chek before meals and also at bedtime. 3. Atrial fibrillation on anticoagulation. Patient is on Coreg, Cardizem CD, digoxin, warfarin. INR is 1.66. The patient is on warfarin 4 mg p.o. at bedtime. We will continue with the same management. 4. Hypertension. Blood pressure is a little bit elevated 151/76. Has been very high at night. We will continue to monitor this patient closely. 5. Leukocytosis, resolved, secondary to right extremity cellulitis. 6. Morbid obesity. Patient has been counseled to have weight loss and proper diet. 7. Disposition: As we mentioned before, we are going to consult Infectious Disease to see for how long we are going to need antibiotics. While this patient is here in the hospital, we will consult to physical therapy and will continue to monitor. cc: Yung Chadwick MD
[2019-01-15] MEDS: HUMALOG SUBQ SCH ×2 (17:16→20:56)
[2019-01-15] MEDS: NEUTRA-PHOS PO SCH ×2 (17:38→20:57)
[2019-01-15] MEDS: VANCOMYCIN 1,800 MG in NS 250 ML IV SCH (17:38)
--- NOTE | 2019-01-15 20:43 | INFECTIOUS DISEASE CONSULT REP ---
DATE: 01/15/2019 CONCLUSION: The patient has swollen erythematous legs due to chronic edema with secondary cellulitis developing in both legs. The patient has an allergy to Keflex manifested by having difficulty breathing. The patient has 1 of 2 blood cultures growing a coagulase-negative Staph. This is a contaminant and it does not require antibiotic treatment. RECOMMENDATIONS: I agree with treating the patient with Aztreonam and vancomycin. I asked the patient to elevate his legs, but he told me he will not do it because it makes him short of breath. Also, as mentioned above, the patient has 1 out of 2 blood cultures growing coagulase- negative Staph. This is a contaminant and does not require antibiotic treatment. DISCUSSION: The patient tells me that for at least 5 years, he has had red, swollen legs that are getting progressively worse. The red discoloration is becoming darker and patient states at times the legs actually look black in color. The patient also, in the past 5 days, has had increasing dyspnea. For the past 2 years, he has had urinary incontinence. LABORATORY DATA: The patient's CBC shows a white count that started out as 16,640, now it is 8850, hemoglobin is 12, and platelet count is 145,000. Creatinine is 1, GFR is greater than 60. Blood cultures 1 out of 2 is growing coagulase-negative Staph. The patient's urine culture is negative. Chest x-ray shows cardiomegaly and pulmonary edema. REVIEW OF SYSTEMS: Eyes/ears: He denies having trouble seeing or hearing. Neck: No stiffness. Respiratory: See present illness. Cardiac: The patient has history of congestive heart failure. He is not currently complaining of chest pain. He has also had atrial fibrillation, but he tells me that has been stopped. Genitourinary: The patient has had urinary incontinence for the past 2 years. Gastrointestinal: No nausea, vomiting, or diarrhea. PREVIOUS HOSPITALIZATIONS/OPERATIONS: He has had 2 laminectomies and he has also had a right total hip arthroplasty. MEDICAL DISEASES: Positive for diabetes mellitus, hypertension, congestive heart failure, atrial fibrillation, sleep apnea, hyperlipidemia, and gastroesophageal reflux disease. INFECTIOUS DISEASE HISTORY: Positive for urinary tract infection and leg cellulitis. FAMILY HISTORY: Positive for diabetes mellitus, hypertension, myocardial infarction, stroke, and cancer. [place]IAL HISTORY[place] . He smokes cigarettes, but he does not drink alcoholic beverages and he does not use illicit drugs. ALLERGIES: His chart lists allergies to penicillin, cephalexin, and celecoxib. HOME MEDICATIONS: Include Bumex, Coreg, Lanoxin, Tiazac, glipizide, hydralazine, hydrocodone, Isordil, losartan, metformin, Singulair, omeprazole, Aceon, Crestor, Januvia, tizanidine, and Coumadin. PHYSICAL EXAMINATION: Vital Signs: Temperature is 98.2 degrees, pulse 86, respirations 16, blood pressure 154/71. The patient is 5 feet 8 inches tall, weighs 250 pounds. General: This is a chronically ill-appearing, obese, middle-aged male. He is in no acute distress at this time. Head/eyes/ears/nose/throat: He can hear my spoken words and see near objects. He does not have any white coating on his tongue. Neck: No meningismus. Lungs: There are bibasilar rales. Cardiovascular: Heart rate is regular. Abdomen: Soft and nontender. Extremities: Both legs are swollen, edematous, and some are even becoming more firm. The color of the legs is very dark red and some of it actually appears to be black. Neurologic: Patient is alert. He can move his extremities. There is no tremor. Thank you for the consult. cc: Salvatore Meza MD
[2019-01-15] MEDS: COUMADIN PO SCH (20:57)
[2019-01-15] MEDS: CRESTOR PO SCH (20:57)
[2019-01-16] MEDS: XOPENEX NEB INH SCH ×4 (03:38→21:38)
[2019-01-16] MEDS: AZACTAM 2 GM in NS 100 ML IV SCH ×3 (05:23→21:00)
[2019-01-16] MEDS: TYLENOL PO PRN ×2 (05:30→21:05)
[2019-01-16] MEDS: HUMALOG SUBQ SCH ×4 (06:02→21:00)
[2019-01-16] MEDS: PRILOSEC PO SCH (06:30)
[2019-01-16 07:21] LABS: BASO# 0.03 X1000 (0.0-0.2); BASO% 0.5 % (0.0-0.8); EOS# 0.03 X1000 (0.0-0.7); EOS% 0.5 % (0.0-10.0); HEMATOCRIT 35.5 % (42.0-52.0); HEMOGLOBIN 11.8 g/dL (14.0-18.0); IMM GRAN# 0.04 X1000 (0.0-0.04); IMM GRAN% 0.6 % (0.0-0.5); LYMPH# 1.07 X1000 (1.2-3.4); LYMPH% 16.4 % (20.5-51.1); MCHC 33.2 g/dL (33-37); MCV 90.3 FL (81-99); MONO# 0.89 X1000 (0.11-0.59); MONO% 13.7 % (1.7-9.3); MPV 10.1 FL (7.4-10.4); NEUT# 4.46 X1000 (1.4-6.5); NEUT% 68.3 % (42.2-75.2); PLT 155 X1000 (130-400); RBC 3.93 XMIL (4.7-6.1); RDW 14.1 % (11.5-14.5); WBC 6.52 X1000 (4.8-10.8)
[2019-01-16 07:35] LABS: AGAP 14; BUN 20 mg/dL (8-22); CALCIUM 7.9 mg/dL (8.8-10.2); CHLORIDE 101 mmol/L (98-107); COSMO 283; CREATININE 0.9 mg/dL (0.7-1.2); ESTIMATED GFR > 60; GLUCOSE 123 mg/dL (70-104); POTASSIUM 3.3 mmol/L (3.5-5.1); SODIUM 140 mmol/L (136-145); TCO2 25 mmol/L (25-35)
[2019-01-16] MEDS: IMDUR PO SCH ×2 (09:52→20:58)
[2019-01-16] MEDS: COZAAR PO SCH (09:52)
[2019-01-16] MEDS: GLUCOTROL XL PO SCH (09:52)
[2019-01-16] MEDS: CARDIZEM CD PO SCH ×2 (09:52→20:59)
[2019-01-16] MEDS: JANUVIA PO SCH (09:52)
[2019-01-16] MEDS: ZANAFLEX PO SCH ×2 (09:52→20:59)
[2019-01-16] MEDS: SINGULAIR PO SCH (09:52)
[2019-01-16] MEDS: BUMEX PO SCH ×2 (09:52→20:58)
[2019-01-16] MEDS: COREG PO SCH ×2 (09:53→20:58)
[2019-01-16] MEDS: LANOXIN PO SCH (09:53)
[2019-01-16] MEDS: NEUTRA-PHOS PO SCH ×4 (09:53→20:59)
[2019-01-16] MEDS ORDERED: KLOR-CON PO ONE (11:04)
[2019-01-16] MEDS ORDERED: SODIUM PHOSPHATE 40 MMOL in NS 250 ML IV ONE (11:20)
--- NOTE | 2019-01-16 13:45 | PROGRESS NOTE ---
DATE: 01/16/2019 SUBJECTIVE: Patient reports feeling fine. Right thigh less swollen and painful. OBJECTIVE: Vital Signs: Temperature 99.5 degrees, heart rate 93, respiratory rate 18, blood pressure 165/88, O2 saturation 97% on room air. General: This is a 63-year-old male, lying in bed, in no acute distress. Cardiovascular: S1, S2 heard. No murmurs, gallops, or rubs. Regular rate and rhythm. Respiratory: Clear bilaterally to auscultation. No work of breathing or using accessory muscles. Abdomen: Soft. Nontender to palpation. Bowel sounds present. No organomegaly. Extremities: The patient has edema involving the right upper thigh. There are chronic venous stasis changes in both lower extremities. There is also ichthyosis. Neurological: Patient is alert and oriented x3. Moves 4 extremities. LABORATORY DATA: Reviewed. ASSESSMENT AND PLAN: 1. Right lower extremity cellulitis with chronic venous stasis. The patient has been seen by Dr. Meza of Infectious Disease, and he agreed with continuing with vancomycin and Azactam. We will continue with the same management. 2. Diabetes mellitus, type 2. We will continue with sliding scale insulin and Accu-Chek before meals and also at bedtime. 3. Atrial fibrillation. On anticoagulation. We will continue with current medications, in this case warfarin. 4. Hypertension. Blood pressure continues to be a little bit elevated, and currently he is on Bumex and losartan. We are going to resume his Coreg today, and we will go from there. 5. Morbid obesity. Patient advised to lose weight. DISPOSITION: We will check with Infectious Disease for how long he is going to need antibiotics. cc: Yung Chadwick MD [facility]
[2019-01-16] MEDS: VANCOMYCIN 1,800 MG in NS 250 ML IV SCH (17:30)
[2019-01-16] MEDS: CRESTOR PO SCH (20:58)
[2019-01-16] MEDS: COUMADIN PO SCH (20:59)
[2019-01-16] MEDS ORDERED: COREG PO SCH (21:00)
[2019-01-17] MEDS: XOPENEX NEB INH SCH ×2 (03:24→08:09)
[2019-01-17] MEDS: HUMALOG SUBQ SCH (06:19)
[2019-01-17] MEDS: PRILOSEC PO SCH (06:19)
[2019-01-17 07:04] LABS: BASO# 0.07 X1000 (0.0-0.2); BASO% 1.1 % (0.0-0.8); EOS# 0.12 X1000 (0.0-0.7); EOS% 1.8 % (0.0-10.0); HEMATOCRIT 36.1 % (42.0-52.0); HEMOGLOBIN 12.3 g/dL (14.0-18.0); IMM GRAN# 0.07 X1000 (0.0-0.04); IMM GRAN% 1.1 % (0.0-0.5); LYMPH# 1.42 X1000 (1.2-3.4); LYMPH% 21.6 % (20.5-51.1); MCH 30.5 PG (27-31); MCHC 34.1 g/dL (33-37); MCV 89.6 FL (81-99); MONO# 1.11 X1000 (0.11-0.59); MONO% 16.9 % (1.7-9.3); MPV 9.9 FL (7.4-10.4); NEUT# 3.77 X1000 (1.4-6.5); NEUT% 57.5 % (42.2-75.2); PLT 182 X1000 (130-400); RBC 4.03 XMIL (4.7-6.1); WBC 6.56 X1000 (4.8-10.8)
[2019-01-17 07:26] LABS: AGAP 12; BUN 20 mg/dL (8-22); CALCIUM 8.1 mg/dL (8.8-10.2); CHLORIDE 107 mmol/L (98-107); COSMO 296; ESTIMATED GFR > 60; GLUCOSE 144 mg/dL (70-104); PHOSPHORUS 2.5 mg/dL (2.7-4.5); POTASSIUM 3.7 mmol/L (3.5-5.1); SODIUM 146 mmol/L (136-145); TCO2 27 mmol/L (25-35)
[2019-01-17 07:45] VITALS: BP 169/93
[2019-01-17] MEDS: COREG PO SCH (09:01)
[2019-01-17] MEDS: CARDIZEM CD PO SCH (09:01)
[2019-01-17] MEDS: NEUTRA-PHOS PO SCH (09:01)
[2019-01-17] MEDS: BUMEX PO SCH (09:01)
[2019-01-17] MEDS: GLUCOTROL XL PO SCH (09:01)
[2019-01-17] MEDS: SINGULAIR PO SCH (09:02)
[2019-01-17] MEDS: JANUVIA PO SCH (09:02)
[2019-01-17] MEDS: ZANAFLEX PO SCH (09:02)
[2019-01-17] MEDS: COZAAR PO SCH (09:02)
[2019-01-17] MEDS: IMDUR PO SCH (09:02)
[2019-01-17] MEDS: AZACTAM 2 GM in NS 100 ML IV SCH (09:02)
[2019-01-17] MEDS: LANOXIN PO SCH (09:03)
[2019-01-17] MEDS ORDERED: SODIUM PHOSPHATE 40 MMOL in NS 250 ML IV ONE (09:49)
--- NOTE | 2019-01-18 11:20 | Extremity Venous Study ---
PROCEDURE NAME: Venous U/S Bilateral Legs - 01/13/2019 DESCRIPTION OF STUDY: This is the bilateral lower extremity venous duplex and color flow imaging study using the [employer] vivid E9 ultrasound System with a 9-LD transducer. REFERRING PROVIDER: URSZULA Martinez IDENTIFYING DATA: A 63-year-old male. RESEARCH EXECUTIVE: Xena Zimmerman, LIBAN INDICATIONS: Pain and swelling of the lower extremities suggestive of deep venous thrombosis. FINDINGS: Right common femoral vein and its branches, deep and superficial femoral veins were satisfactorily imaged. They had flow through them and were compressible. Right popliteal vein and the deep veins below the right knee were all compressible and had flow through them. The superficial veins of the right lower extremity were compressible throughout their length. The left common femoral vein and its branches, deep and superficial femoral veins were also satisfactorily imaged. They had flow through them and were compressible. Left popliteal vein and the deep veins below the left knee were all compressible and had flow through them. The superficial veins of the left lower extremity were compressible throughout their length. INTERPRETATION: No evidence of acute deep or superficial venous thrombosis of the bilateral lower extremities. cc: MD Cathy Bolton CRNP
--- NOTE | 2019-01-19 16:10 | DISCHARGE SUMMARY ---
ADMISSION DATE: 01/13/2019 DISCHARGE DATE: 01/17/2019 DISCHARGE DIAGNOSES: 1. Right lower extremity cellulitis. 2. Sepsis secondary to cellulitis. 3. Chronic anticoagulation secondary to atrial fibrillation. 4. Atrial fibrillation, rate controlled. PROCEDURES: 1. Chest x-ray done on admission showed cardiomegaly. 2. Extremity venous study showed no evidence of acute deep or superficial venous thrombosis of the bilateral lower extremities.. HOSPITAL CONSULTATIONS: Dr. Meza from Infectious Disease. HOSPITAL COURSE: This is a 63-year-old male, who presented to the emergency department complaining of general weakness with fever,m chills and redness of the right leg. So, he was admitted for right leg cellulitis. He was placed on antibiotics. He has actually very severe venous stasis involving lower extremities and also ichthyosis. The patient was placed on vancomycin and aztreonam, and he reports feeling better. Day of discharge, patient does not want to wait for Infectious Disease doctor to be seen next day, and he actually requests firmly to be discharged and, in case he is not doing okay with the treatment he is going to receive here in the hospital, he can return to the ER. In that regard, we are proceeding with discharging this patient with antibiotics, and he is going to be seen by Dr. Meza in the office in a couple weeks. DISCHARGE PHYSICAL EXAMINATION: Vital Signs: Temperature 98.3 degrees, heart rate 81, respiratory rate 20, blood pressure 169/93. O2 saturation 97% on room air. General Examination: This is a chronically ill-appearing, 63-year-old, male, lying in bed in no acute distress. Cardiovascular exam: S1, S2 heard. No murmurs, gallops, or rubs. Regular rate and rhythm. Respiratory exam: Clear bilaterally to auscultation. No work of breathing or using accessory muscles. Abdomen: Soft. Nontender to palpation. Bowel sounds present. No organomegaly. Extremities: Patient has edema involving the right upper thigh with erythema that is definitely much better. Chronic venous stasis noted with ichthyosis. Neurological exam: Patient alert, oriented x3. Moves 4 extremities. DISCHARGE DISPOSITION: Home to self-care. LIST OF MEDICATIONS: 1. Doxycycline 100 mg one tablet p.o. b.i.d. for 2 weeks 2. Metformin 1000 mg p.o. b.i.d. 3. Imdur 30 mg one tablet p.o. b.i.d. 4. Hydralazine 100 mg one tablet p.o. 3 times per day. 5. Crestor 10 mg one tablet p.o. at bedtime. 6. Digoxin 125 mcg one tablet p.o. daily. 7. Diltiazem 240 mg p.o. b.i.d. 8. Coreg 25 mg one tablet p.o. b.i.d. 9. Bumex 2 mg one tablet p.o. b.i.d. 10. Lortab 5 mg one tablet p.o. daily. 11. Glipizide 10 mg one tablet p.o. daily. 12. Losartan 100 mg one tablet p.o. daily. 13. Omeprazole 40 mg one tablet p.o. daily. 14. Potassium chloride 10 mEq one tablet p.o. b.i.d. 15. Januvia 100 mg one tablet p.o. daily. 16. Tizanidine 4 mg one tablet p.o. at bedtime. 17. Warfarin as directed. 18. Singulair 10 mg one tablet p.o. daily. TIME DISCHARGING THIS PATIENT: 38 minutes. cc: Yung Chadwick MD
== END 2019-01-17 11:50 | disposition home health service (06) | DRG 872 ==
LOC: ED 11:16 → EDIPHOLD 14:07 → SUATTDRO 14:07 → 3N 15:17
PROVIDERS: ATTEND Internal Medicine